=== PATIENT | female | born 1995 | race Caucasian/White ===

== ENCOUNTER 2024-07-07 14:43 | Emergency (ER) | payer OTHER, SELFPAY ==
[2024-07-07 15:00] VITALS: BP 145/105
--- NOTE | 2024-07-07 17:00 | ED.GENMED ---
History of Present Illness
General
Chief Complaint: Dizziness
Source: patient
Time Seen by Provider: 07/07/24 16:38
History of Present Illness
History of Present Illness:
29yoF with no significant past medical history presenting for evaluation of dizziness. Patient works as a massage therapist. She was standing at work today when she suddenly became lightheaded and felt like she was about to pass out. She denies
any loss of consciousness. Dizziness seems to be worse with position changes and standing. Patient also reports feeling 'like she is not all the way there.' She had some palpitations during this episode and also felt like she was about to have an
episode of diarrhea. No chest pain or shortness of breath. Of note, patient had a miscarriage about a week ago. Vaginal bleeding stopped about 2 days ago. Quantitative HCG was <5 last week and pelvic ultrasound was normal. She had outpatient
blood work yesterday including CBC and CMP. Hemoglobin was 15.5 at that time.
Past History
Past History
ED Past Medical History: None
ED Past Surgical History: Other (Oral surgery)
Social History
Tobacco: Non-smoker
Alcohol: None
Drug: None
Personal:
Living: with family
Employment: Employed
Family History
Family History: Other (Fibromyalgia ovarian cysts)
Phy Exam
General Physical Exam
General Presentation: well appearing and no apparent distress
General age: appears stated age
General Skin: warm and dry
General Habitus: normal
General Mental: alert
ENT Exam
ENT Exam: normocephalic
Cardiovascular Exam
Cardiovascular Exam: regular rate/rhythm and no murmur
Pulmonary Exam
Pulmonary Exam: lungs clear, no respiratory distress, no rales, no crackles and no rhonchi
Neurological Exam
Neurological Exam: alert
Barbara Coma Scale
Eye Opening: Spontaneous
Verbal Response: Oriented
Motor Response: Obeys Commands
GCS Total Score: 15
Skin Exam
Skin Exam: normal color and warm/dry
Psychiatric Exam
Psychiatric Exam: normal mood/affect
Course
Orders/Labs/Results
Orders:
Orders
07/07/24 14:51
Electrocardiogram (*1) Urgent
Reason for Study: Vertigo / Dizzy
EKG- Treatment ONCE
07/07/24 16:58
Orthostatic VS- Treatment ONCE
0.9% Sodium Chloride 500 ml [Nss] 500 ml IV BOLUS
Test Result ONCE
07/07/24 17:24
HCG, Serum Qualitative Screen Urgent
Troponin I Urgent
Vital Signs
Initial and Last Documented VS:
Initial Vital Signs
Temp Pulse Resp Pulse Ox
99 F 108 18 98
07/07/24 14:47 07/07/24 14:47 07/07/24 14:47 07/07/24 14:47
Last Documented Vital Signs
Temp Pulse Resp BP Pulse Ox
99 F 108 18 145/105 98
07/07/24 14:47 07/07/24 14:47 07/07/24 14:47 07/07/24 15:00 07/07/24 14:47
MDM/Problems Addressed
Differential Diagnosis Includes:
29yoF here after a near syncopal episode at work. Feels off. Recent miscarriage 1 week ago. No CP/SOB. No headache. VSS. She is well appearing in no distress. Exam is reassuring. Differential diagnosis includes but is not limited to: dehydration,
orthostatic hypotension, arrhythmia, anemia
Initial ED plan: Patient had outpatient blood work yesterday which she was able to show me on her phone. CBC and CMP obtained. Labs normal and hemoglobin 15.5. No indication for repeat CBC at this time. Will check troponin/EKG, HCG, and orthostatic
vital signs. IV fluid bolus.
*EKG
Interpreted by ED Provider?: Yes
EKG Intrepretation Date: 07/07/24
Heart Rate: 93
Rate: normal
Rhythm: sinus
Presho: normal axis
Interval: normal interval
QRS Pattern: normal QRS
Ischemia: non-specific ST changes (Nonspecific ST/T wave changes in inferior leads)
*Critical Care Note
Total Time (30-74mins, 75-104mins- exclusive of procedures): Not Applicable
Update Note
Update Note:
HCG negative. EKG shows NSR with nonspecific ST/T wave changes in inferior leads which were also noted on prior EKG. Troponin WNL. Orthostatic vital signs negative. No indication for admission at this time. Advised close f/u with PCP and ED return
precautions discussed. She was discharged in stable condition.
ED Attending Note
-
Portions of this chart may have been created with voice recognition software.� Occasional wrong word or��sound alike� substitutions may have occurred due to the inherent limitations of voice recognition software.
Discharge Plan
Departure
Patient Disposition: Home (Routine Discharge)
Date of Disposition: 07/07/24
Time of Disposition: 18:37
Patient with high blood pressure during this ER visit?: No
Discharge Problem:
Near syncope
Instructions: Dizziness
Prescriptions:
No Action
prenat.vits,arely,tkr-qqxm-gbnly [ Vitamin] 1 EACH tablet
1 tab PO DAILY
ibuprofen 600 MG tablet
600 mg PO Q4HPRN PRN (Reason: moderate pain/cramps) 0RF
pantoprazole [Protonix] 20 mg tablet,delayed release (DR/EC)
20 mg PO DAILY Qty: 20 0RF
alum-mag hydroxide-simeth [Liquid Antacid] 400-400-40 mg/5 mL suspension
10 ml PO TID PRN (Reason: indigestion) Qty: 355 0RF
uekfeeakt-jjqvxw-ffovyqps-scop [] 16.2 mg-0.1037 mg/5 mL (5 mL) elixir
5 ml PO Q6H PRN (Reason: indigestion) Qty: 50 0RF
Referrals:
Bridgett Cantu CRNP [Family Provider] -
Stand Alone Forms: Return to Work
Activity Restrictions/Additional Instructions:
Please call your family doctor on Tuesday for follow-up. Return to the ER with any new or worsening symptoms.
Interventions
Interventions:
*Risk Screen - Suicide Last Done: 07/07/24 17:25
*General Assessment Last Done: 07/07/24 17:25
*Neglect/Abuse Screening Last Done: 07/07/24 17:25
*ED COVID-19 Vaccine History Last Done: 07/07/24 17:25
*Nursing Disposition Last Done: 07/07/24 19:02
ED- Neurological Assessment Last Done: 07/07/24 17:25
Discharge Date and Time
Discharge Date/Time: 07/07/24 19:03
Print Language: LATVIAN
[2024-07-07] MEDS: NSS 500 IV (17:25)
[2024-07-07 17:52] LABS: HCG, Serum Qualitative Screen Negative
[2024-07-07 18:04] LABS: Troponin I < 0.012 ng/ml
[2024-07-07 18:22] VITALS: BP 119/86; BP 120/70; BP 134/85; PULSE 70; PULSE 85; PULSE 98
== END 2024-07-07 19:03 | disposition home or self-care (01) ==
LOC: EMR 14:43
PROVIDERS: Physician Assistant; EMERGENCY PHYSICIAN Emergency Medicine; FAMILY PHYSICIAN Nurse Practitioner Family
DX: R55 Syncope and collapse (principal)
CPT/HCPCS: 96360; 99284; 84484; 84703; 93005